=== PATIENT | male | born 1940 | race Caucasian/White ===

== ENCOUNTER 2017-12-15 02:07 | Emergency (ER) | payer SELFPAY ==
[~2017-12-15] VITALS: Ht 152.4 cm; Wt 140.0 kg
[2017-12-15] MEDS ORDERED: ACETAMINOPHEN 325 MG TABLET PO ONE (04:30)
[2017-12-15 06:05] VITALS: BP 140/80
== END 2017-12-15 06:08 | disposition home or self-care (01) ==
LOC: EMS 02:09
DX: S82.001A Unspecified fracture of right patella, initial encounter for closed fracture (principal); F17.210 Nicotine dependence, cigarettes, uncomplicated; W18.39XA Other fall on same level, initial encounter; Y93.89 Activity, other specified; Y92.89 Other specified places as the place of occurrence of the external cause; Y99.8 Other external cause status
CPT/HCPCS: 29530; 99284

== ENCOUNTER 2022-05-30 06:06 | Day surgery (SDC) | payer OTHER, MEDICAID ==
[2022-05-29 10:41] LABS: COVID AG,FIA SOURCE NASOPHARYNGEAL
[~2022-05-30 06:06] MED LIST: APIX2.5T PO; CHOL500043 PO; FLUT1BLS9 IH; KETOROLAC TROMETHAMINE 0.5% 5 ML OPHTHALMIC SOLUTION ONE; LISI-661 PO; MELA5TAB21 PO; MOXIFLOXACIN HCL 0.5% 3 ML OPHTHALMIC SOLUTION ONE; PANT-31 PO; PHENYLEPHRINE HCL 2.5% 2 ML OPHTHALMIC SOLUTION ONE; RINGERS SOLUTION,LACTATED 500 ML IV ONE; TAMS-13 PO; TIOT185 IH; TROPICAMIDE 1% 2 ML OPHTHALMIC SOLUTION ONE
[2022-05-30] MEDS ORDERED: EPINEPHrine 1:1,000 [1 MG/ML] VIAL ET ONE (06:07)
[2022-05-30] MEDS ORDERED: LIDOCAINE/PF 1% 2 ML VIAL CAUDAL ONE (06:07)
[2022-05-30] MEDS ORDERED: POVIDONE-IODINE 10% 15 ML SOLUTION UD TP ONE (06:07)
[2022-05-30] MEDS ORDERED: MIDAZOLAM HCL 2 MG/2 ML VIAL IVP ONE (06:07)
[2022-05-30] MEDS ORDERED: FentaNYL CITRATE PF 100 MCG/2 ML VIAL IVP ONE (06:07)
[2022-05-30] MEDS ORDERED: BALANCED SALT 15 ML OPHTHALMIC IRRIG.SOLN IO ONE (06:07)
[2022-05-30] MEDS ORDERED: CHONDR SULF A SOD/HYALURONATE 1.05 ML KIT IO ONE (06:07)
[2022-05-30] MEDS ORDERED: TETRACAINE HCL/PF 0.5% 4 ML OPHTHALMIC SOLUTION OD ONE (06:07)
[2022-05-30] MEDS ORDERED: EPINEPHrine 1:1,000 [1 MG/ML] VIAL ONE (06:34)
[2022-05-30] MEDS ORDERED: LIDOCAINE/PF 1% 2 ML VIAL ONE (06:34)
[2022-05-30] MEDS ORDERED: POVIDONE-IODINE 10% 15 ML SOLUTION UD ONE (06:37)
[2022-05-30] MEDS: PHENYLEPHRINE HCL 2.5% 2 ML OPHTHALMIC SOLUTION OS SCH ×3 (06:49→06:57)
[2022-05-30] MEDS ORDERED: TETRACAINE HCL/PF 0.5% 4 ML OPHTHALMIC SOLUTION ONE (06:50)
[2022-05-30] MEDS: MOXIFLOXACIN HCL 0.5% 3 ML OPHTHALMIC SOLUTION OS SCH ×3 (06:50→06:57)
[2022-05-30] MEDS: TROPICAMIDE 1% 2 ML OPHTHALMIC SOLUTION OS SCH ×3 (06:51→06:58)
[2022-05-30] MEDS ORDERED: KETOROLAC TROMETHAMINE 0.5% 5 ML OPHTHALMIC SOLUTION ONE (06:53)
[2022-05-30] MEDS: KETOROLAC TROMETHAMINE 0.5% 5 ML OPHTHALMIC SOLUTION OS SCH ×3 (06:54→06:57)
== END 2022-05-30 09:50 | disposition home or self-care (01) ==
LOC: SURGERY 06:06
PROVIDERS: ATTEND Ophthalmology
DX: H25.12 Age-related nuclear cataract, left eye (principal); I10 Essential (primary) hypertension; Z79.899 Other long term (current) drug therapy; Z98.890 Other specified postprocedural states
CPT/HCPCS: 66984; 93005; 87426; C9803; J0171; J3010; J3490; J2250; Q9967; J7120; V2632

== ENCOUNTER 2022-08-01 05:48 | Day surgery (SDC) | payer OTHER, MEDICAID ==
[~2022-08-01] VITALS: Ht 152.4 cm; Wt 61.5 kg
[~2022-08-01 05:48] MED LIST changes: -KETOROLAC TROMETHAMINE 0.5% 5 ML OPHTHALMIC SOLUTION ONE; -MOXIFLOXACIN HCL 0.5% 3 ML OPHTHALMIC SOLUTION ONE; -PHENYLEPHRINE HCL 2.5% 2 ML OPHTHALMIC SOLUTION ONE; -RINGERS SOLUTION,LACTATED 500 ML IV ONE; -TROPICAMIDE 1% 2 ML OPHTHALMIC SOLUTION ONE
[2022-08-01] MEDS ORDERED: LIDOCAINE/PF 1% 2 ML VIAL IM ONE (05:49)
[2022-08-01] MEDS ORDERED: POVIDONE-IODINE 5% 30 ML OPHTHALMIC SOLUTION OD ONE (05:49)
[2022-08-01] MEDS ORDERED: EPINEPHrine 1:1,000 [1 MG/ML] VIAL IM ONE (05:49)
[2022-08-01] MEDS ORDERED: BALANCED SALT 15 ML OPHTHALMIC IRRIG.SOLN OD ONE (05:49)
[2022-08-01] MEDS ORDERED: CHONDR SULF A SOD/HYALURONATE 1.05 ML KIT IO ONE (05:49)
[2022-08-01] MEDS ORDERED: TETRACAINE HCL/PF 0.5% 4 ML OPHTHALMIC SOLUTION OD ONE (05:49)
[2022-08-01] MEDS ORDERED: RINGERS SOLUTION,LACTATED 500 ML IV ONE ×2 (06:00→08:05)
[2022-08-01 06:19] LABS: COVID AG,FIA SOURCE NASAL SWAB
[2022-08-01] MEDS ORDERED: MOXIFLOXACIN HCL 0.5% 3 ML OPHTHALMIC SOLUTION ONE (06:37)
[2022-08-01] MEDS ORDERED: TROPICAMIDE 1% 2 ML OPHTHALMIC SOLUTION ONE (06:37)
[2022-08-01] MEDS ORDERED: PHENYLEPHRINE HCL 2.5% 2 ML OPHTHALMIC SOLUTION ONE (06:37)
[2022-08-01] MEDS ORDERED: KETOROLAC TROMETHAMINE 0.5% 5 ML OPHTHALMIC SOLUTION ONE (06:37)
[2022-08-01] MEDS: TROPICAMIDE 1% 2 ML OPHTHALMIC SOLUTION OD SCH ×3 (07:07→07:32)
[2022-08-01] MEDS: PHENYLEPHRINE HCL 2.5% 2 ML OPHTHALMIC SOLUTION OD SCH ×3 (07:07→07:32)
[2022-08-01] MEDS: KETOROLAC TROMETHAMINE 0.5% 5 ML OPHTHALMIC SOLUTION OD SCH ×3 (07:07→07:32)
[2022-08-01] MEDS: MOXIFLOXACIN HCL 0.5% 3 ML OPHTHALMIC SOLUTION OD SCH ×3 (07:07→07:32)
[2022-08-01] MEDS ORDERED: MIDAZOLAM HCL 2 MG/2 ML VIAL IVP ONE (12:00)
[2022-08-01] MEDS ORDERED: FentaNYL CITRATE PF 100 MCG/2 ML VIAL IVP ONE (12:00)
== END 2022-08-01 10:03 | disposition home or self-care (01) ==
LOC: SURGERY 05:48
PROVIDERS: ATTEND Ophthalmology
DX: H25.11 Age-related nuclear cataract, right eye (principal); I10 Essential (primary) hypertension; Z20.822 Contact with and (suspected) exposure to COVID-19; Z79.899 Other long term (current) drug therapy
CPT/HCPCS: 66984; 87426; J0171; J3010; J3490; J2250; Q9967; J7120; V2632; C9803